=== PATIENT | female | born 1940 | race Caucasian/White ===

== ENCOUNTER → 2016-12-21 | Outpatient (CLI) | payer MEDICARE, OTHER | END | disposition home or self-care (01) | LOC: PETCFH 12:39 | PROVIDERS: ATTEND Specialist | DX: C51.9 Malignant neoplasm of vulva, unspecified (principal); D09.9 Carcinoma in situ, unspecified; I25.10 Atherosclerotic heart disease of native coronary artery without angina pectoris; M47.896 Other spondylosis, lumbar region; K44.9 Diaphragmatic hernia without obstruction or gangrene | CPT/HCPCS: 78815; A9552 ==

== ENCOUNTER 2017-01-15 07:30 | Inpatient (IN) | payer MEDICARE, OTHER ==
[2017-01-08 13:44] VITALS: BP 146/83
[~2017-01-15] VITALS: Ht 152.4 cm; Wt 72.8 kg
[~2017-01-15 07:30] MED LIST: ASPI-496 PO; BUPIVACAINE/PF-EPI 0.25% 1:200K ONE; DILT360C10 PO; FAMO20TA7 PO; LEVO150T5 PO; MOEX15TA2 PO
[2017-01-15] MEDS ORDERED: LACTATED RINGERS 1,000 ML IV SCH (10:04)
[2017-01-15] MEDS ORDERED: FENTANYL PF 100 MCG/2ML ONE ×2 (16:45→19:40)
[2017-01-15] MEDS ORDERED: CEFAZOLIN 1,000 MG ONE (17:35)
[2017-01-15] MEDS ORDERED: PROPOFOL 10 MG/ML, 20ML ONE (17:35)
[2017-01-15] MEDS ORDERED: BUPIVACAINE/PF-EPI 0.25% 1:200K ONE (17:52)
[2017-01-15] MEDS ORDERED: ONDANSETRON 2MG/ML, 2ML IVPush PRN (19:00)
[2017-01-15] MEDS ORDERED: PROMETHAZINE 25 MG/ML, 1ML IV PRN (19:00)
[2017-01-15] MEDS ORDERED: FENTANYL PF 100 MCG/2ML IV PRN (19:00)
[2017-01-15] MEDS ORDERED: HYDROmorphone 1 MG/ML, 1ML IV PRN (19:00)
[2017-01-15] MEDS ORDERED: HYDROmorphone 2 MG/ML, 1ML ONE (19:40)
[2017-01-15] MEDS ORDERED: HYDROmorphone PCA 30 MG/30 ML ONE (20:04)
[2017-01-15] MEDS ORDERED: HYDROmorphone PCA 30 MG/30 ML IV PRN (20:30)
[2017-01-15 21:09] VITALS: BP 133/71
[2017-01-15] MEDS ORDERED: HYDROmorphone 2 MG/ML, 1ML IV PRN (21:30)
[2017-01-15] MEDS: ONDANSETRON 2MG/ML, 2ML IVPush PRN (22:03)
[2017-01-15] MEDS: POTASSIUM CHLORIDE 20 MEQ in D5%-LACTATED RINGERS 1,000 ML IV SCH (22:06)
[2017-01-16 02:00] VITALS: BP 128/64
[2017-01-16] MEDS: POTASSIUM CHLORIDE 20 MEQ in D5%-LACTATED RINGERS 1,000 ML IV SCH ×3 (03:53→20:38)
[2017-01-16] MEDS: ONDANSETRON 2MG/ML, 2ML IVPush PRN (05:53)
[2017-01-16] MEDS: LEVOTHYROXINE 175 MCG TABLET PO SCH (05:53)
[2017-01-16] MEDS ORDERED: ENOXAPARIN 30 MG/0.3 ML SQ SCH (06:00)
[2017-01-16 07:01] VITALS: BP 116/83
[2017-01-16] MEDS: ATORVASTATIN 10 MG TABLET PO SCH (09:00)
[2017-01-16] MEDS: OMEPRAZOLE 20 MG CAPSULE.DR PO SCH (09:10)
[2017-01-16] MEDS: DILTIAZEM 120 MG CAP.ER.12H PO SCH ×2 (09:11→20:07)
[2017-01-16 09:47] LABS: HEMOGLOBIN 12.3 g/dL (11.7-16.4)
[2017-01-16 10:01] LABS: BLOOD UREA NITROGEN 16 mg/dL (7-18)
[2017-01-16 13:17] VITALS: BP 129/58
[2017-01-16] MEDS: KETOROLAC 30 MG/1 ML IV PRN (14:32)
[2017-01-16 20:17] VITALS: BP 109/55
[2017-01-17] MEDS: POTASSIUM CHLORIDE 20 MEQ in D5%-LACTATED RINGERS 1,000 ML IV SCH ×3 (01:46→08:15)
[2017-01-17 02:00] VITALS: BP 99/59
[2017-01-17 05:11] LABS: HEMOGLOBIN 11.2 g/dL (11.7-16.4)
[2017-01-17 05:15] LABS: BLOOD UREA NITROGEN 18 mg/dL (7-18)
[2017-01-17] MEDS: LEVOTHYROXINE 175 MCG TABLET PO SCH (05:47)
[2017-01-17] MEDS ORDERED: ENOXAPARIN 30 MG/0.3 ML SQ SCH (06:00)
[2017-01-17 07:17] VITALS: BP 127/67
[2017-01-17] MEDS: ATORVASTATIN 10 MG TABLET PO SCH (08:15)
[2017-01-17] MEDS: DILTIAZEM 120 MG CAP.ER.12H PO SCH (08:16)
[2017-01-17] MEDS: OMEPRAZOLE 20 MG CAPSULE.DR PO SCH (08:16)
[2017-01-17] MEDS: ONDANSETRON 2MG/ML, 2ML IVPush PRN (12:40)
[2017-01-17 13:30] VITALS: BP 110/64
[2017-01-17] MEDS ORDERED: HYDROcodone/APAP 5/325 TABLET PO PRN (13:30)
[2017-01-17] MEDS: FAMOTIDINE 20 MG TABLET PO SCH (13:56)
[2017-01-17 20:00] VITALS: BP 113/48
[2017-01-17] MEDS ORDERED: FAMOTIDINE 20 MG TABLET PO SCH (21:00)
[2017-01-18 03:24] VITALS: BP 132/64
[2017-01-18] MEDS: KETOROLAC 30 MG/1 ML IV PRN ×2 (04:22→16:33)
[2017-01-18] MEDS: LEVOTHYROXINE 150 MCG TABLET PO SCH (05:55)
[2017-01-18] MEDS: ENOXAPARIN 40 MG/0.4 ML SQ SCH (05:57)
[2017-01-18] MEDS ORDERED: LEVOTHYROXINE 175 MCG TABLET PO SCH (06:00)
[2017-01-18 07:09] VITALS: BP 107/54
[2017-01-18] MEDS: DILTIAZEM 120 MG CAP.ER.12H PO SCH (08:05)
[2017-01-18] MEDS: FAMOTIDINE 20 MG TABLET PO SCH (08:05)
[2017-01-18] MEDS ORDERED: IBUPROFEN 200 MG TABLET PO PRN (09:00)
[2017-01-18 09:34] LABS: BLOOD UREA NITROGEN 18 mg/dL (7-18)
[2017-01-18] MEDS: ONDANSETRON 2MG/ML, 2ML IVPush PRN (12:05)
[2017-01-18 14:07] VITALS: BP 112/64
[2017-01-18] MEDS: HYDROmorphone 2MG TABLET PO PRN ×3 (15:20→20:17)
[2017-01-18 20:24] VITALS: BP 118/67
[2017-01-19] MEDS: HYDROmorphone 2MG TABLET PO PRN ×4 (00:17→12:39)
[2017-01-19 02:38] VITALS: BP 121/58
[2017-01-19] MEDS: LEVOTHYROXINE 150 MCG TABLET PO SCH (05:07)
[2017-01-19] MEDS: ENOXAPARIN 40 MG/0.4 ML SQ SCH (05:08)
[2017-01-19 07:11] VITALS: BP 143/72
[2017-01-19] MEDS: DILTIAZEM 120 MG CAP.ER.12H PO SCH (09:01)
[2017-01-19] MEDS: FAMOTIDINE 20 MG TABLET PO SCH (09:02)
[2017-01-19 09:40] LABS: HEMOGLOBIN 12.9 g/dL (11.7-16.4)
[2017-01-19 09:53] LABS: BLOOD UREA NITROGEN 18 mg/dL (7-18)
[2017-01-19] MEDS ORDERED: HYDR2TAB13 PO (11:02)
[2017-01-19] MEDS ORDERED: ONDA4TAB7 PO (11:03)
[2017-01-19] MEDS ORDERED: METO10TA82 PO (11:04)
[2017-01-19] MEDS: KETOROLAC 30 MG/1 ML IV PRN (13:00)
== END 2017-01-19 13:23 | disposition home health service (06) | DRG 747 ==
LOC: ORIP 08:49 → 3NW 20:15
PROVIDERS: ADMIT Specialist; ATTEND Specialist
PROC: 0UB Female Reproductive System, Excision (ICD-10-PCS; 2017-01-15)
PROC: 0UTM0ZZ Resection of Vulva, Open Approach (ICD-10-PCS; principal; 2017-01-15 14:00)
DX: C51.9 Malignant neoplasm of vulva, unspecified (principal); K90.0 Celiac disease; D64.9 Anemia, unspecified; N18.3 Chronic kidney disease, stage 3 (moderate); K21.9 Gastro-esophageal reflux disease without esophagitis; I12.9 Hypertensive chronic kidney disease with stage 1 through stage 4 chronic kidney disease, or unspecified chronic kidney disease; D72.829 Elevated white blood cell count, unspecified; E03.9 Hypothyroidism, unspecified; L28.0 Lichen simplex chronicus
CPT/HCPCS: 36415; 80048; 85025; 86850; 86900; 86923; 88309; J0690; J1170; J1650; J1885; J2405; J2704; J3010; J3480; J7120; J7121

== ENCOUNTER → 2017-12-17 | Outpatient (CLI) | payer MEDICARE, OTHER ==
[~2017-12-17] MED LIST changes: -BUPIVACAINE/PF-EPI 0.25% 1:200K ONE; +HYDR2TAB29 PO; +METO10TA82 PO; +ONDA4TAB7 PO; +TURM500C4 PO; +[UNRECOGNIZED DRUG - OTHER] PO
[2017-12-17 13:50] LABS: BASOPHILS # (AUTO) 0.04 x10^3/uL (0-0.1); BASOPHILS % (AUTO) 1 % (0-1); EOSINOPHILS # (AUTO) 0.21 x10^3/uL (0-0.4); EOSINOPHILS % (AUTO) 3 % (1-7); LYMPHOCYTES # (AUTO) 1.78 x10^3/uL (1-3.4); LYMPHOCYTES % (AUTO) 23 % (22-44); MD NO; MEAN CORPUSCULAR HEMOGLOBIN 30.8 pg (27.0-34.8); MEAN CORPUSCULAR HGB CONC 34.2 g/dL (32.4-35.8); MEAN CORPUSCULAR VOLUME 90.2 fL (80-100); MEAN PLATELET VOLUME 11.6 fL (7.4-10.4); MONOCYTES # (AUTO) 0.58 x10^3/uL (0.2-0.8); MONOCYTES % (AUTO) 8 % (2-9); NEUTROPHILS # (AUTO) 5.06 x10^3/uL (1.8-6.8); NEUTROPHILS % (AUTO) 66 % (42-75); PLATELET COUNT 172 x10^3/uL (130-400); RED BLOOD COUNT 4.47 x10^6/uL (3.82-5.3); RED CELL DISTRIBUTION WIDTH 13.9 % (9.6-15.2)
[2017-12-17 14:01] LABS: ALANINE AMINOTRANSFERASE 29 U/L (12-78); ANION GAP 7 mmol/L (5-15); CALCIUM 9.1 mg/dL (8.5-10.1); CHLORIDE 109 mmol/L (98-107); CREATININE 1.09 mg/dL (0.55-1.02)
[2017-12-17 14:03] LABS: ALKALINE PHOSPHATASE 77 U/L (45-117); BILIRUBIN,TOTAL 0.3 mg/dL (0.2-1.0); TOTAL PROTEIN 8.1 g/dL (6.4-8.2)
== END | disposition home or self-care (01) ==
LOC: STAR 12:38
PROVIDERS: ATTEND Specialist
DX: Z01.818 Encounter for other preprocedural examination (principal); D09.9 Carcinoma in situ, unspecified
CPT/HCPCS: 36415; 71046; 80053; 85025; 93005

== ENCOUNTER 2017-12-24 07:00 | Day surgery (SDC) | payer MEDICARE, OTHER ==
[~2017-12-24] VITALS: Ht 157.5 cm; Wt 68.8 kg
[2017-12-24] MEDS ORDERED: FENTANYL PF 100 MCG/2ML ONE (08:18)
[2017-12-24] MEDS ORDERED: MIDAZOLAM 1 MG/ML, 2ML ONE (08:19)
[2017-12-24] MEDS ORDERED: BUPIVACAINE/PF 0.25% ONE (08:22)
[2017-12-24] MEDS ORDERED: LACTATED RINGERS 1,000 ML IV SCH (08:29)
[2017-12-24] MEDS ORDERED: LIDOCAINE-MPF 1%, 2ML INFIL ONE (08:30)
[2017-12-24 08:31] VITALS: BP 157/71
[2017-12-24] MEDS ORDERED: ONDANSETRON 2MG/ML, 2ML ONE (09:43)
[2017-12-24] MEDS ORDERED: CEFAZOLIN 1,000 MG ONE (09:43)
[2017-12-24] MEDS ORDERED: PROPOFOL 10 MG/ML, 20ML ONE (09:43)
[2017-12-24] MEDS ORDERED: DEXAMETHASONE 4 MG/ML, 1ML ONE (09:43)
[2017-12-24] MEDS ORDERED: PROMETHAZINE 25 MG/ML, 1ML IV PRN (10:30)
[2017-12-24] MEDS ORDERED: FENTANYL PF 100 MCG/2ML IV PRN (10:30)
[2017-12-24] MEDS ORDERED: PROMETHAZINE 12.5 MG SUPP PR PRN (10:30)
[2017-12-24] MEDS ORDERED: ACETAMINOPHEN 325 MG TABLET PO PRN (10:30)
[2017-12-24] MEDS ORDERED: KETOROLAC 30 MG/1 ML IV PRN (10:30)
[2017-12-24] MEDS ORDERED: morphine SULFATE 10 MG/ML, 1ML IV PRN (10:30)
[2017-12-24] MEDS ORDERED: LORazepam 2 MG/ML, 1ML IVPush PRN (10:30)
[2017-12-24] MEDS ORDERED: MEPERIDINE/PF 25MG/0.5ML IVPush PRN (10:30)
[2017-12-24] MEDS ORDERED: ONDANSETRON 2MG/ML, 2ML IVPush PRN (10:30)
== END 2017-12-24 13:45 ==
LOC: OUT 07:00
PROVIDERS: ATTEND Obstetrics & Gynecology Gynecologic Oncology
DX: N90.89 Other specified noninflammatory disorders of vulva and perineum (principal); E78.5 Hyperlipidemia, unspecified; I10 Essential (primary) hypertension; E03.9 Hypothyroidism, unspecified; R23.4 Changes in skin texture; Z90.710 Acquired absence of both cervix and uterus; Z98.890 Other specified postprocedural states; Z72.89 Other problems related to lifestyle; Z87.891 Personal history of nicotine dependence
CPT/HCPCS: 36415; 56605; 82962; 86850; 86900; 88305; J0690; J1100; J2405; J2704; J3010; J3490; J7120; J2250